=== PATIENT | male | born 1935 | race Caucasian/White ===

== ENCOUNTER 2016-11-19 07:54 | Day surgery (SDC) | payer MEDICARE, BC ==
--- NOTE | 2016-11-16 11:33 | HP ---
PATIENT: DAVID OATES MEDICAL RECORD: [id number] ACCOUNT: [id number] LOCATION:[facility] : 36 ADMISSION DATE: 11/19/16 HISTORY AND PHYSICAL EXAMINATION Preoperative History and Physical HISTORY OF PRESENT ILLNESS: Mr. Oates is an 81-year-old male who has had problems with sinus pressure and obstruction. He has had sinus surgery 30 years ago with a right sinusitis giving a lot of chronic drainage and bleeding. He is being admitted for right-sided sinus surgery and cautery of epistaxis. PAST MEDICAL HISTORY: Includes hypertension, cardiovascular disease, pacemaker, multiple myeloma. PAST SURGICAL HISTORY: Includes cardiac bypass, pacemaker and lumbar fusion. CURRENT MEDICATIONS: Include folic acid, metoprolol, Bumex, acyclovir, Coumadin. ALLERGIES: No known drug allergies. PHYSICAL EXAMINATION: FACE: Normal and symmetric. EYES: Sclerae and conjunctivae are normal. EARS: Canals and TMs are normal. NOSE: Left side is normal. 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 He has got some evidence of bleeding from the right anterior septum, but it could just be from the edges of this ostia on the right side have some bleeding as well which is chronically infected. NECK: No masses, adenopathy. CHEST: Clear. CARDIOVASCULAR: Regular rate and rhythm. No murmur. EXTREMITIES: Normal. 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 PLAN: Debridement of right maxillary sinus and cautery of epistaxis on the right side of the nose. TRANSINT:[id number] Voice Confirmation ID: [id number] DOCUMENT ID: [id number] JOLIE ANTHONY MD at 1133 CC: [id number] DICTATION DATE: 11/15/16 160 VETERINARY INSPECTOR: 11/15/162049 PRE [facility] [address] [id number]
[~2016-11-19] VITALS: Ht 167.6 cm; Wt 84.8 kg
[~2016-11-19 07:54] MED LIST: BUMEX 1 MG TAB1 MG PO; COLACE100 MG PO; COUMADIN5 MG PO; GEMFIBROZIL600 MG PO; NEXIUM40 MG PO; THERMOTABS 1 GM1 GM PO; TOPROL XL50 MG PO; ZOVIRAX200 MG PO
[2016-11-19 09:01] LABS: ANION GAP 14.8 mmol/L (8-16); CALCIUM 8.4 mg/dL (8.5-10.1); CREATININE - SERUM 2.7 mg/dL (0.6-1.3); POTASSIUM - SERUM 3.8 mmol/L (3.5-5.1)
[2016-11-19 09:11] LABS: APTT 46.3 SECONDS (22.8-39.4); BASOPHILS 0.4 % (0-2); EOSINOPHILS 2.5 % (0-7); HEMATOCRIT 31.1 % (42.0-54.0); HEMOGLOBIN 10.3 g/dL (13.5-17.5); IMMATURE GRANULOCYTES 0.4 % (0-5); INR 2.64 (0.85-1.17); LYMPHOCYTES 14.8 % (15-50); MCH 35.4 pg (26.0-34.0); MCHC 33.1 g/dL (31.0-37.0); MCV 106.9 fL (80.0-100.0); MEAN PLATELET VOLUME 10.6 fL (7.4-10.4); MONOCYTES 4.9 % (2-11); PROTIME 28.4 SECONDS (11.6-15.0); RBC 2.91 10x6/uL (4.20-6.10); RDW 15.8 % (11.5-14.5); WBC 2.4 10x3/uL (4.8-10.8)
[2016-11-19 09:44] LABS: PLATELET COUNT 41 10x3/uL (130-400)
[2016-11-19 09:45] LABS: PLATELET ESTIMATE DECREASED
[2016-11-19 10:22] VITALS: BP 105/52; Ht 167.6 cm; Wt 84.8 kg
--- NOTE | 2016-11-20 12:55 | OP ---
PATIENT NAME: DAVID HERRERA MEDICAL RECORD: [id number] :36 LOCATION:[facility] ADMISSION DATE: SURGEON: NAVNEET LEWIS MD DATE OF OPERATION: 11/19/2016 PREOPERATIVE DIAGNOSES: Right-sided recurrent epistaxis and right-sided chronic maxillary sinusitis. POSTOPERATIVE DIAGNOSES: Right-sided recurrent epistaxis and right-sided chronic maxillary sinusitis. PROCEDURES: Right middle meatal antrostomy with removal of what appeared to be mycetoma and cautery of anterior epistaxis. SURGEON: Navneet Lewis MD ANESTHESIA: General orotracheal. BLOOD LOSS: 1 cc. SPECIMENS: Cultures and path on the right maxillary sinus contents. COMPLICATIONS: None. DISPOSITION: Recovery stable. DESCRIPTION OF PROCEDURE: The patient brought to the operating room and placed in supine position, sedated and intubated by anesthesia. The table was turned 90 degrees. A head drape was applied and positioned for endoscopic nasal surgery. The right side of the nose was examined. The anterior septum and the uncinate and root of the middle turbinate were injected with a total of less than 1 cc of 1% lidocaine with 1:100,000 epinephrine. Afrin pledgets were placed bilaterally was positioned, prepped and draped in usual fashion for nasal surgery. Then, all Afrin pledgets were removed. The left side of the nose was examined first with a 0-degree scope. He had large maxillary ostia that were clean and maxillary mucosa looked normal, inferior middle turbinate were normal, status post inferior turbinate reduction, nasal vault, nasal mucosa and nasopharynx all appeared normal. There was some drainage visible from the opposite side posteriorly. Then, the right side was examined. He did have a small vein on some septal deviation that appeared to be responsible for the bleeding that he had been experiencing as well as some granulation around the maxillary ostia and inferior maxillary window from previous sinus surgery. The nasal vault was normal. The nasopharynx was normal. Suction cautery was used to ablate that small vessel that was responsible for the anterior epistaxis and then the right maxillary sinus was opened up and a ball tip probe was used to basically remove this large mycetoma that eroded into the nasal cavity. This was then removed in large pieces. Once it was completely removed, the purulence that was sent for path and a lot of purulence was used to get the cultures. The sinus was then suctioned using large curved olive tip suction, which was completely evacuated and examined with the scope. There were granulation changes throughout the mucosa and around the edges of the inferior ostia. The sinus was irrigated repeatedly with saline with 30 cc syringe. Once it was completely clean and irrigated, the nasopharynx was suctioned. The area was carefully examined. Some of the granulation was cauterized with suction cautery. The remnant of the inferior turbinate posteriorly was cauterized, some OPERATIVE REPORT [id number] DAVID HERRERA polypoid changes back there and then mupirocin ointment was used to coat the maxillary sinus mckeon. With that, the field was clean and dry. There was absolutely no bleeding. He was awakened, extubated, and transported to recovery in good condition. No complications. TRANSINT:[id number] Voice Confirmation ID: [id number] DOCUMENT ID: [id number] NAVNEET LEWIS MD at 1255 CC: [id number] DICTATION DATE: 11/19/16 1148 HAUL DRIVER: 11/19/162110 [facility] 11/19/16 [facility] [address] [place] [address]
== END 2016-11-19 13:15 | disposition home or self-care (01) ==
LOC: D.OPS 07:54 → D.PAN 09:00 → D.OPS 10:15 → D.PAN 10:15 → D.OPS 10:30
PROVIDERS: Anesthesiology
DX: R04.0 Epistaxis (principal); J32.0 Chronic maxillary sinusitis; B47.9 Mycetoma, unspecified; J34.2 Deviated nasal septum; I10 Essential (primary) hypertension; I25.10 Atherosclerotic heart disease of native coronary artery without angina pectoris; Z95.1 Presence of aortocoronary bypass graft; Z95.0 Presence of cardiac pacemaker; Z85.89 Personal history of malignant neoplasm of other organs and systems; Z98.1 Arthrodesis status; Z79.01 Long term (current) use of anticoagulants; Z79.899 Other long term (current) drug therapy; Z01.812 Encounter for preprocedural laboratory examination

== ENCOUNTER 2018-06-06 06:48 | Outpatient (CLI) | payer MEDICARE, BC ==
[2016-11-19 10:22] VITALS: BMI 30.2
[2018-06-06 07:09] LABS: BASOPHILS 0.1 % (0-2); EOSINOPHILS 0.8 % (0-7); HEMATOCRIT 27.7 % (42.0-54.0); HEMOGLOBIN 9.1 g/dL (13.5-17.5); IMMATURE GRANULOCYTES 0.3 % (0-5); LYMPHOCYTES 3.3 % (15-50); MCH 33.6 pg (26.0-34.0); MCHC 32.9 g/dL (31.0-37.0); MCV 102.2 fL (80.0-100.0); MEAN PLATELET VOLUME 9.6 fL (7.4-10.4); MONOCYTES 2.3 % (2-11); NEUTROPHILS 93.2 % (40-80); RBC 2.71 10x6/uL (4.20-6.10)
[2018-06-06 07:26] LABS: PLATELET COUNT 34 10x3/uL (130-400)
[2018-06-06 07:32] LABS: ANION GAP 16.3 mmol/L (8-16); CALCIUM 8.4 mg/dL (8.5-10.1); CARBON DIOXIDE 24.7 mmol/L (21.0-32.0); CREATININE - SERUM 3.1 mg/dL (0.6-1.3)
[2018-06-06 07:42] LABS: APTT 34.5 SECONDS (22.8-39.4); INR 1.28 (0.85-1.17); PROTIME 15.4 SECONDS (11.6-15.0)
[2018-06-06 07:56] LABS: PLATELET ESTIMATE DECREASED
--- NOTE | 2018-06-06 09:21 | NUR ---
PROCEDURE CANCELLED DUE TO CRITAL PLATELET COUNT OF 34 SPOKE WITH HAMILTON HILLIARD WHO CANCELLED PROCEDURE AND SPOKE WITH DR CORONADO TO CONFIRM. DC'D HOME.
== END 2018-06-06 06:49 | disposition home or self-care (01) ==
LOC: D.OPS 06:48 → EDSTATUS 08:00 → D.OPS 09:30
PROVIDERS: Surgery
DX: N18.6 End stage renal disease (principal); Z53.09 Procedure and treatment not carried out because of other contraindication; Z01.812 Encounter for preprocedural laboratory examination

== ENCOUNTER 2018-06-27 07:37 | Day surgery (SDC) | payer MEDICARE, BC ==
[~2018-06-27] VITALS: Ht 167.6 cm; Wt 78.0 kg
[2018-06-27 08:13] LABS: INR 1.25 (0.85-1.17); PROTIME 15.2 SECONDS (11.6-15.0)
[2018-06-27 08:14] LABS: ANION GAP 16.9 mmol/L (8-16); CALCIUM 8.5 mg/dL (8.5-10.1); CARBON DIOXIDE 25.8 mmol/L (21.0-32.0); CREATININE - SERUM 3.2 mg/dL (0.6-1.3); POTASSIUM - SERUM 3.7 mmol/L (3.5-5.1)
[2018-06-27 08:23] LABS: BASOPHILS 0.2 % (0-2); EOSINOPHILS 0.6 % (0-7); HEMATOCRIT 28.6 % (42.0-54.0); HEMOGLOBIN 9.4 g/dL (13.5-17.5); IMMATURE GRANULOCYTES 0.2 % (0-5); LYMPHOCYTES 2.7 % (15-50); MCH 34.2 pg (26.0-34.0); MCHC 32.9 g/dL (31.0-37.0); MEAN PLATELET VOLUME 10.2 fL (7.4-10.4); MONOCYTES 2.7 % (2-11); NEUTROPHILS 93.6 % (40-80); RBC 2.75 10x6/uL (4.20-6.10); RDW 18.4 % (11.5-14.5); WBC 12.5 10x3/uL (4.8-10.8)
[2018-06-27 08:27] LABS: PLATELET COUNT 52 10x3/uL (130-400)
--- NOTE | 2018-06-27 09:27 | NUR ---
0925 DR CORONADO NOTIFIED AND IS AWARE OF PT'S WBC 12.5. NO ORDERS RECEIVED.
[2018-06-27] MEDS ORDERED: TOPROL XL25 MG PO (09:31)
[2018-06-27] MEDS ORDERED: K-DUR20 MEQ (09:32)
[2018-06-27 09:45] VITALS: BP 104/72; Ht 167.6 cm; Wt 78.0 kg
[2018-06-27 10:18] LABS: PLATELET ESTIMATE DECREASED
--- NOTE | 2018-06-27 14:00 | NUR ---
1345 PT STATING HE WANTS "SOME AIR" ASKED HIM IF HE WAS SOB AND HE SAID HE WAS. DENIES CHEST PAIN. PT'S SAID HE USES HOME OXYGEN NEEDED. BNC 2L PUT ON PT.
--- NOTE | 2018-06-27 14:40 | NUR ---
1410 PT UP TO BSC TO VOID. STATES HE IS NOT SOB AND ITS OK TO DC BNC. 1420 PT VOIDED. DOES NOT WANT TO GET BACK IN BED. NO INCREASE IN BLEEDING ON DSG THAT WAS MARKED IN PACU. PT FEELS LIKE HE WANTS TO GO HOME.
--- NOTE | 2018-06-27 14:48 | NUR ---
[address] EDWARDS, CALLED AND GIVEN INFO FROM DR. CORONADO REGARDING SURGERY PROCEDURE AND WHEN AVF CAN BE USED.
--- NOTE | 2018-06-27 15:19 | NUR ---
1500 IV DC'D. NO BLEEDING AT SITE. BANDAID APPLIED. 1519 DR CORONADO TALKING TO PT PRIOR TO DISCHARGE. PT AWARE THAT HE IS TO TAKE TYLENOL FOR PAIN.
--- NOTE | 2018-07-01 13:06 | OP ---
PATIENT NAME: DAVID OATES MEDICAL RECORD: [id number] :36 LOCATION:[facility] ADMISSION DATE: SURGEON: GLADYS CORONADO MD DATE OF OPERATION: 06/27/2018 PREOPERATIVE DIAGNOSIS: End-stage renal disease and dependence on hemodialysis via tunneled dialysis catheter. Multiple myeloma-associated renal failure. Thrombocytopenia due to diminished platelet production. POSTOPERATIVE DIAGNOSES: End-stage renal disease and dependence on hemodialysis via tunneled dialysis catheter. Multiple myeloma-associated renal failure. Thrombocytopenia due to diminished platelet production. OPERATION PERFORMED: Creation of a right arm brachial artery to translocated basilic vein AV fistula in one stage. SURGEON: Gladys Coronado MD ANESTHESIA: Regional block and general per SCRIPT GIRL PREOPERATIVE NOTE: Mr. Oates is an 83-year-old white male patient with multiple myeloma and now renal failure. He is on dialysis with a catheter and Dr. Daly has asked me to provide a fistula or an AV graft so that he can dialyze without the need for catheter. This gentleman has a problem with chronic anemia and requires frequent blood transfusions. He also has a problem with chronic thrombocytopenia. He had platelet transfusion yesterday. His platelet count this morning was 55,000. I planned to go ahead with his surgery today, but we will give him one unit of platelets in the operating room at the beginning of the operation. Ideally, for elective surgery, I would prefer platelet count be greater than 80,000 or better greater than 100,000. At any rate, he was brought to the OR at this time to make a fistula or implant a graft in his right arm. DESCRIPTION OF PROCEDURE: The patient was placed on the operating table in supine position and prepped and draped in sterile manner. A [place] drain was used as a proximal venous tourniquet and nitroglycerin paste was applied to the intact skin of the forearm and arm. I examined him with duplex ultrasound and found that he had a good-sized 4-mm or larger basilic vein and 5-mm or larger brachial artery without atherosclerotic change on ultrasound. I elected to go ahead with a brachial artery to translocated basilic fistula. An incision was placed over the basilic vein and the mid arm. This was done with ultrasound guidance and location. The incision was extended distally into the antecubital space and proximally almost to the axilla. The vein was mobilized and it was necessary to divide one sensory nerve branch. This was done between Hemoclips. Hemostasis was obtained generally with electrocautery and few Vicryl ties. The patient's coagulopathic oozing persisted after the platelet transfusion and he was then given 20 mcg of DDAVP with apparent good result. The brachial artery was exposed in the antecubital space and controlled proximally and distally with Silastic loops. The vein was ligated and divided in the antecubital space. It was flushed with heparinized saline, treated with topical papaverine, and the end beveled. The artery was occluded, opened, and flushed proximally and distally with heparinized saline. An end-to-side dbt-bv-upbu-to-side of artery anastomosis was then performed with running 7-0 Prolene. When completed, the occluding loops and clamps were released. The suture line was hemostatic and there was good thrill and pulsation in the basilic vein and in the brachial OPERATIVE REPORT [id number] JAVIERDAVID artery above and below the anastomosis. The wound was irrigated with Ancef and gentamicin solution. It was infiltrated with a total of 10 cc of 0.25% Marcaine with epinephrine for hemostasis. The wound was closed without the use of a drain and proximal and subcutaneous tissues with interrupted 3-0 Vicryl below the level of the translocated vein. The skin was closed directly over that with running intracuticular 4-0 Monocryl and Dermabond glue. The wound was dressed with Maxorb Ag, Tegaderm, and Cavilon skin prep. The patient was placed in a sling, awakened from his anesthetic, and taken to the recovery room. Blood loss during the operation was about 75-100 cc, was unreplaced. Sponges, instruments, and needles were accounted for. No drain was used and no surgical specimen was submitted for histopathology. The patient, I expect, will certainly have ecchymotic and swollen arm. Hopefully, he will not have bleeding into or under his operative dressing, requiring dressing changes. I have advised Mrs. Oates that I am concerned that he might need to stay in the hospital overnight just because of the potential for wound bleeding and the need for dressing changes in the night. She strongly prefers to take him home if at all possible and I have agreed to let him go home if he is not having any bleeding or complications in the outpatient department or recovery room. I will plan to see him back in my office in about a week. I have given them my office telephone number and my personal cell number. They are to call if there are any problems. I have told him and her that he is not to resume his Coumadin before Saturday evening and only after checking with me via one of these 2 telephone numbers. I am hesitant to put him back on Coumadin if there are any bleeding problems because of this thrombocytopenia. He apparently has atrial fibrillation and that is the reason for his Coumadin anticoagulation. He had a problem with bleeding into the skin when on a NOAC. TRANSINT:[id number] Voice Confirmation ID: [id number] DOCUMENT ID: [id number] cc: [facility] [phone] GLADYS CORONADO MD at 1306 CC: CAMILA DALY MD, [facility] and MARCIN ROBLEDO MD [id number] DICTATION DATE: 06/27/18 1403 POLICE LIAISON OFFICER: 06/27/18 1635 [facility] 06/27/18 [facility] [address] [place] [address]
== END 2018-06-27 15:25 | disposition home or self-care (01) ==
LOC: D.OPS 07:37
PROVIDERS: Surgery; ATTEND Internal Medicine Nephrology
DX: N18.6 End stage renal disease (principal); Z99.2 Dependence on renal dialysis; C90.00 Multiple myeloma not having achieved remission; D69.59 Other secondary thrombocytopenia; D63.1 Anemia in chronic kidney disease; Z01.812 Encounter for preprocedural laboratory examination